=== PATIENT | male | born 1990 | race Caucasian/White ===

== ENCOUNTER 2022-03-29 17:52 | Inpatient (IN) | payer SELFPAY ==
[~2022-03-29] VITALS: Ht 190.5 cm; Wt 102.0 kg
[2022-03-29 18:01] VITALS: BP 160/89
--- NOTE | 2022-03-29 18:03 | NUR ---
PT TO ROOM 11 VIA WC ABLE TO STAND AND TRANSFER SELF WITHOUT ASSIST.
--- NOTE | 2022-03-29 18:32 | NUR ---
SPOKE WITH POISON CONTROL. THEY ADVISED SUPPORTIVE CARE FOR SYMPTOMS, LABS, URINE FOR DRUGS ABUSE. THEY WILL CALL BACK IN TWO TO THREE HOURS.
[2022-03-29 19:01] LABS: HEMATOCRIT 46.2 % (39.0-50.0); HEMOGLOBIN 15.3 g/dl (14.0-18.0); IMMATURE GRANULOCYTES 0.3 % (0.0-5.0); MEAN CORPUSCULAR HGB 28.8 pG CALC (26.0-32.0); MEAN CORPUSCULAR HGB CONC 33.1 g/dL CAL (32.0-36.0); NEUT# 7.17 thou/uL (1.82-7.42); RED BLOOD COUNT 5.31 mill/uL (4.70-6.10); RED CELL DISTRI WIDTH 12.1 % (11.5-15.5)
--- NOTE | 2022-03-29 19:05 | NUR ---
PT MEDICATED PER ORDERS. MOTHER AT BEDSIDE.
[2022-03-29 19:18] LABS: ALBUMIN 4.5 g/dL (3.2-5.0); ALKALINE PHOSPHATASE 107 u/l (38-126); ANION GAP 13 (6-22 (CALC)); BILIRUBIN, TOTAL 0.3 mg/dL (0.0-1.4); BUN 12 mg/dL (9-20); BUN/CREATININE RATIO 18 (12-20 (CALC)); CARBON DIOXIDE 25 mmol/l (22-30); CHLORIDE 104 mmol/l (95-108); CREATININE 0.7 mg/dL (0.7-1.3); GFR > 60 ML/MIN (>=60 (CALC)); GFR FOR AFR.AMER. > 60 ML/MIN (>=60 (CALC)); LIPASE 277 u/l (23-300); POTASSIUM 3.7 mmol/l (3.5-5.1); SGOT/AST 47 u/l (17-59); SODIUM 139 mmol/l (137-146); TOTAL PROTEIN 8.1 g/dL (6.3-8.2)
[2022-03-29 19:30] LABS: MYOGLOBIN 18 ng/mL (0 - 121)
--- NOTE | 2022-03-29 20:14 | NUR ---
PT PROVIDED URINE SAMPLE, RN SENT TO LAB. AWAITING RESULTS
[2022-03-29 20:25] LABS: URINE BILIRUBIN - DIPSTICK NEGATIVE (NEGATIVE); URINE BLOOD DIPSTICK NEGATIVE (NEGATIVE); URINE COLOR YELLOW; URINE GLUCOSE - DIPSTICK NEGATIVE (NEGATIVE); URINE KETONE NEGATIVE (NEGATIVE); URINE LEUK ESTERASE NEGATIVE (NEGATIVE); URINE NITRITE - DIPSTICK NEGATIVE (Negative); URINE PH 8.5 (4.5-8.0); URINE PROTEIN - DIPSTICK NEGATIVE (NEG-TRACE); URINE SPECIFIC GRAVITY 1.015; URINE UROBILINOGEN - DIPSTICK 0.2 E.U./dL (0.2)
[2022-03-29 21:32] VITALS: BP 150/97
--- NOTE | 2022-03-29 21:54 | NUR ---
IV DRESSING REENFORCED DUE TO PT SWEATING. PT SLEEPING. AT BEDSIDE
[2022-03-29 22:00] VITALS: BP 150/96
--- NOTE | 2022-03-29 22:29 | NUR ---
POISON CONTROL CALLED FOR UPDATE. INFO PROVIDED.
[2022-03-29 22:30] VITALS: BP 154/90
--- NOTE | 2022-03-29 22:30 | NUR ---
FROM POISON CONTROL CALLED AND ASKED THAT WE DRAW A CPK.
[2022-03-29 23:30] VITALS: BP 144/95
[2022-03-30 00:01] VITALS: BP 144/85
[2022-03-30 00:30] VITALS: BP 145/84
--- NOTE | 2022-03-30 01:16 | NUR ---
CALLED REPORT TO MED SURG FLOOR. SPK WITH MELODY ESTRADA. REPORT PROVIDED ON PT USING SBAR. OPPORTUNITY GIVEN FOR QUESTIONS.
[2022-03-30 01:49] VITALS: BP 143/81
--- NOTE | 2022-03-30 01:53 | NUR ---
PT TRANSPORTED TO FLOOR VIA STRETCHER. BELONGINGS CHECKLIST COMPLETED. PT RECEIVED BY NURSE MELODY ESTRADA.
--- NOTE | 2022-03-30 02:25 | NUR ---
RECEIVED PATIENT FROM THE ER ALERT AND ORIENTED X 4 .NO S/S OF DISTRESS NOTED. SKIN COLD AND CLAMMY. DENIES ANY PAIN OR DISCOMFORT AT THIS TIME. REQUESTED FOR ATIVAN FOR ANXIETY. PATIENT TRANSFERRED SELF FROM STRETCHER TO BED. VITAL SIGN STABLE. CALL LIGHT IN REACH.
[2022-03-30 03:59] VITALS: BP 142/76
[2022-03-30 05:55] LABS: HEMATOCRIT 41.7 % (39.0-50.0); HEMOGLOBIN 13.9 g/dl (14.0-18.0); MEAN CELL VOLUME 86.9 fL CALC (80.0-100.0); MEAN CORPUSCULAR HGB CONC 33.3 g/dL CAL (32.0-36.0); RED BLOOD COUNT 4.8 mill/uL (4.70-6.10); RED CELL DISTRI WIDTH 12.2 % (11.5-15.5)
[2022-03-30 06:08] LABS: ANION GAP 10 (6-22 (CALC)); BUN 9 mg/dL (9-20); BUN/CREATININE RATIO 16 (12-20 (CALC)); CARBON DIOXIDE 26 mmol/l (22-30); CHLORIDE 110 mmol/l (95-108); CREATININE 0.6 mg/dL (0.7-1.3); GFR > 60 ML/MIN (>=60 (CALC)); GFR FOR AFR.AMER. > 60 ML/MIN (>=60 (CALC)); MAGNESIUM 1.7 mg/dL (1.6-2.3); POTASSIUM 4.2 mmol/l (3.5-5.1); SODIUM 141 mmol/l (137-146)
[2022-03-30 06:24] VITALS: BP 136/78
--- NOTE | 2022-03-30 08:40 | NUR ---
SHIFT INITIAL ASSESSMENT - PT IS DROWSY, BUT ORIENTED AND FOLLOWING COMMANDS. REPORTS PAIN 8/10 AND PAIN IS GENERALIZED. PT DOES NOT LOOK TO BE IN ANY VISIBLE DISTRESS. PTS EYES SENSITIVE TO LIGHT. PT SITTING UP IN BED HAVING BREAKFAST. VISITOR AT BEDSIDE. SAFETY PRECAUTIONS ARE IN PLACE. CALL LIGHT AND PERSON BELONGINGS WITHIN REACH. WILL CONTINUE TO MONITOR.
[2022-03-30] MEDS ORDERED: CLONIDINE0.1 MG PO (10:32)
[2022-03-30] MEDS ORDERED: XANAX0.5 MG PO (10:37)
== END 2022-03-30 13:51 | disposition home or self-care (01) | DRG 897 ==
LOC: ED 17:52 → ED-I 22:40 → ED 22:56 → MS2 22:57
PROVIDERS: Emergency Medicine; ADMIT Hospitalist; ATTEND Hospitalist
DX: F11.13 Opioid abuse with withdrawal (principal); F17.210 Nicotine dependence, cigarettes, uncomplicated; Z20.822 Contact with and (suspected) exposure to COVID-19
CPT/HCPCS: J2060